=== PATIENT | female | born 1990 | race Caucasian/White ===

== ENCOUNTER 2018-12-06 15:25 | Inpatient (IN) | payer OTHER ==
[2018-12-06] MEDS ORDERED: Ringers Lactate 1,000 ML IV PRN (16:15)
[2018-12-06] MEDS ORDERED: MEPERIDINE HCL 25 MG/0.5 ML IV PRN (16:15)
[2018-12-06] MEDS ORDERED: ZOLPIDEM TARTRATE 5 MG TABLET PO PRN (16:15)
[2018-12-06] MEDS ORDERED: CARBOPROST TROME 250 MCG/ML IM PRN (16:15)
[2018-12-06] MEDS ORDERED: BUTORPHANOL 1 MG/ML INJ IV PRN (16:15)
[2018-12-06] MEDS ORDERED: MIDAZOLAM HCL 2 MG/2 ML INJ IV PRN (16:15)
[2018-12-06] MEDS ORDERED: PROMETHAZINE 25 MG/ML VIAL IM PRN (16:15)
[2018-12-06] MEDS ORDERED: MAGNES/ALUMIN/SIMET 30ML UCUP PO PRN (16:15)
[2018-12-06] MEDS ORDERED: METHYLERGONOVINE 0.2MG/ML AMP IM PRN (16:15)
[2018-12-06] MEDS ORDERED: DIPHENHYDRAMINE 25 MG TAB/CAP PO PRN (16:15)
[2018-12-06] MEDS ORDERED: miSOPROStol 100 MCG TAB VAG PRN ×2 (16:26→18:17)
[2018-12-06 16:49] LABS: RPR Titer ND
[2018-12-06 16:51] LABS: Absolute Lymphocytes (CBC) 2.7 K/uL (0.7-4.9); Absolute Monocytes 0.6 K/uL (0.1-1.3); Absolute Neutrophil 6.3 K/uL (1.8-8.0); Basophils % 0.3 % (0-1.3); Eosinophils % 0.4 % (0-4.4); Hematocrit 36.5 % (36.0-45.0); Lymphocytes % 27.7 % (15.3-44.8); MPV 10.8 fL (7.6-11.3); Monocytes % 6.1 % (3.3-12.3); RBC Red Blood Cell Count 4.18 M/uL (3.86-4.86)
[2018-12-06 16:59] LABS: Urine Appearance CLEAR; Urine Bilirubin NEGATIVE (NEG); Urine Blood NEGATIVE (NEG); Urine Color YELLOW; Urine Glucose NEGATIVE (NEG); Urine Protein NEGATIVE (NEG); Urine Specific Gravity >=1.030 (1.005-1.030); Urine pH 6.5 (5.0-7.0)
[2018-12-06] MEDS ORDERED: Ringers Lactate 1,000 ML IV SCH (17:00)
[2018-12-06 17:01] LABS: Urine Microscopic Reflex NO UMIC
[2018-12-06 18:27] VITALS: BMI 29.8
--- NOTE | 2018-12-06 19:27 | PREOPHP ---
Date of Admission: 12/06/2018 Briana Abdullahi, a 28-year-old primigravida, 38 weeks , gestational diabetic for inductio n. A 1.5 cm, 50% effaced vertex, but still -1, almost -2 station. Cytotec 50 mcg inserted. Full pr e-insertion talk given. FHTs normal. She is misbah mildly but not even aware of it. We will i nsert 2 more 50 mcg Cytotec in 6 hour interval then attempt membrane rupture tomorrow. Anticipate de livery sometime tomorrow. Full admission talk given. HILTON/MODL Voice ID: [id number]
[2018-12-06 21:58] LABS: RPR (Rapid Plasma Reagin) NON-REACT (NON-REACT)
[2018-12-07] MEDS ORDERED: FENTANYL CITR 100 MCG/2 ML IV ONE (06:42)
[2018-12-07] MEDS ORDERED: ROPIVACAINE HCL 100 ML IV PRN (06:43)
[2018-12-07] MEDS ORDERED: ROPIVACAINE HCL 0.2% 20ML AMP SQ ONE (06:44)
--- NOTE | 2018-12-07 07:04 | PN ---
The patient responded quite well to mcg Cytotec tablet, went into a good active labor jimmy ethan. Rupture of membranes, early this morning. There was report of light meconium with the fluid th at I see right now looked fairly normal. No thick meconium for sure. She is now 3 cm, 70 to 80% eff aced. She has had 1 dose of Stadol 1 mg IV, Phenergan 25 mg IM. I have placed a scalp electrode to get a more accurate reading on the baby. If the baby looks good and we continue in her labor, then w e will consider giving her an epidural at this point since I think more Stadol would decrease the bab y's variability and we do not want any confusion. discussion with patient and family. HILTON/EMILIE Voice ID: [id number] Report ID: [id number]
[2018-12-07] MEDS ORDERED: OXYTOCIN/LR 20 UNIT/1,000 ML BAG IV ONE (07:22)
[2018-12-07] MEDS ORDERED: EPHEDRINE SULF 50 MG/ML VIAL ONE ×2 (08:26→08:56)
--- NOTE | 2018-12-07 08:28 | PN ---
Baby responded to acoustic stimulation, but looks more like variable than anything else. At this poi nt, I think that because of the patient's request at epidural that would be better than giving her mo re Stadol which could confuse the issue with FHT's. We will start the hydration process and call Ane sthesia. HILTON/EMILIE Voice ID: [id number] Report ID: [id number]
[2018-12-07] MEDS ORDERED: METOCLOPRAMIDE 10 MG/2mL INJ ONE (08:32)
[2018-12-07] MEDS ORDERED: NA CIT/CITRIC AC 30 ML ORAL UDC ONE (08:33)
[2018-12-07] MEDS ORDERED: METHYLERGONOVINE 0.2MG/ML AMP IM ONE (08:33)
[2018-12-07] MEDS ORDERED: CEFAZOLIN/SWI 2gm 2 GM/20 ML SYR ONE (08:33)
[2018-12-07] MEDS ORDERED: FAMOTIDINE 20 MG/2 ML VIAL IV ONE (08:33)
[2018-12-07] MEDS ORDERED: CARBOPROST TROME 250 MCG/ML IM ONE (08:33)
[2018-12-07] MEDS ORDERED: LIDOCAINE 2% MPF 5 ML VIAL ONE (08:35)
[2018-12-07] MEDS ORDERED: NS 0.9% VIAL 10 ML ONE ×2 (08:56→08:57)
[2018-12-07] MEDS ORDERED: MORPHINE SULFATE/PF 1 MG/ML (10 ML AMP) ONE (08:56)
[2018-12-07] MEDS ORDERED: OXYTOCIN 10 UNIT/ML ML IV ONE (08:56)
[2018-12-07] MEDS ORDERED: ONDANSETRON 4 MG/2 ML VIAL ONE (09:05)
[2018-12-07] MEDS ORDERED: LIDOCAINE 1% MPF 5 ML VIAL ONE (09:06)
[2018-12-07] MEDS ORDERED: LIDOCAINE 2% W/EPI 1:200,000 MPF 20 ML VIAL IM ONE (09:07)
[2018-12-07] MEDS ORDERED: Phenylephrine HCl 10 MG/ML 1 ML VIAL ONE (09:43)
[2018-12-07] MEDS ORDERED: KETOROLAC 30 MG/ML INJ IV PRN (09:48)
[2018-12-07] MEDS ORDERED: ACETAMINOPHEN 500 MG TAB PO PRN ×2 (09:48)
[2018-12-07] MEDS ORDERED: BISACODYL 10 MG RECTAL SUPP RECT PRN (09:48)
[2018-12-07] MEDS ORDERED: DIPHENHYDRAMINE 25 MG TAB/CAP PO PRN (09:48)
[2018-12-07] MEDS ORDERED: Oxycodone HCl/Acetaminophen 1 TAB TAB PO PRN (09:48)
[2018-12-07] MEDS ORDERED: ONDANSETRON 4 MG (ODT) TAB PO PRN (09:48)
[2018-12-07] MEDS ORDERED: CEFAZOLIN/SWI 1gm 1 GM/10 ML SYR IV SCH (09:48)
[2018-12-07] MEDS ORDERED: ONDANSETRON 4 MG/2 ML VIAL IV PRN (09:48)
[2018-12-07] MEDS ORDERED: KETOROLAC 30 MG/ML INJ IM PRN (09:48)
[2018-12-07] MEDS ORDERED: OXYTOCIN/LR 20 UNIT/1,000 ML BAG IV SCH (10:00)
[2018-12-07] MEDS ORDERED: D5LR 1,000 ML with OXYTOCIN 20 UNIT IV SCH ×2 (10:00)
--- NOTE | 2018-12-07 13:16 | PN ---
Subjective: After epidural was instituted patient had pronounced decelerations 60 beats per minute f or 2 minutes. Blood pressure also was down low. Dr. Rhoades has given her ephedrine, blood pressure is responded. Baby looks better but because she is only 2.5 to 3 cm, we have decided to proceed with a . The baby did not have good cspy-mf-pgjr variability actually from the beginning. The matthew t-to-beat actually looks pretty good right now, but we were going to proceed with as patient and I all agree. Infection, blood loss, anesthetic complications, injury to bladder, bowel, ureter, postoperative complications, clots in legs, and pneumonia discussed. The patient knows full y well this does not constitute all the possible problems that could occur during the following surge ry. Student Services Coordinator surgeon has been notified. We have an emergency, cleaned up in the OR since we just f inished . But at this point baby looks stable. No change in the physical status, heart and lungs are clear. We will proceed with expeditious , 2 g of Ancef ordered for prophylaxis, roxanne todd preoperative counseling. HILTON/EMILIE Voice ID: [id number] Report ID: [id number]
[2018-12-07] MEDS ORDERED: Ringers Lactate 1,000 ML IV ONE (13:21)
--- NOTE | 2018-12-07 13:22 | PN ---
Subjective: Since ephedrine, the baby's heart rate looks better, still not a lot of anlw-rb-myqt sita iability, but no decelerations anymore. The patient has been counselled. I think proceeding with benny cochran is still probably reasonable idea. I think if it has to go along during the day, she will brielle ntually deliver vaginally, but could not sure the couple that the baby is in excellent condition. Ho wever, as I said there are no major decelerations at this time. Again options given including expect ant management. She will let us know as soon as possible since the surgical area is almost prepared and ready. HILTON/EMILIE Voice ID: [id number] Report ID: [id number]
--- NOTE | 2018-12-07 15:55 | OP ---
Surgeon: Fahad Suero MD Anesthesiologist: Dr. Díaz. Indications: A 28-year-old, gestational diabetic, 38 weeks. Had Cytotec inserted. Progressed to ap proximately 3 cm, experienced spontaneous rupture of membranes, very light meconium. FHTs did not sh ow good variability at any point, decreased slightly after Stadol, but were reassuring enough to cont inue with the labor. The patient had a deceleration of 60 beats per minute for 2 minutes probably re lated to the epidural after appropriate measures by Dr. Díaz of giving IV ephedrine, heart rate retur jany to the baseline level. However, we decided to proceed with section for nonreassuring as the patient was still early in labor. Infection, blood loss, anesthetic complications; injury to bl adder, bowel, ureter; postoperative complications, clots in legs, pneumonia, future C-sections, all d iscussed. The patient was given the option of waiting, but chose to proceed with . was called. Hop Weigher Surgeon: Dr. Carnes. Anesthesia: With epidural. Procedure In Detail: After prepping and draping, time-out was performed. Then Pfannenstiel incision was created. The incision was carried to the fascia. The fascia was incised and incision carried t ransversely bilaterally. Anterior fascial plane was developed with both blunt and sharp dissection. Posterior plane was also developed. Anterior rectus muscle was . Peritoneal defect was en tered bluntly. Low transverse uterine incision created. A 5-pound, 14-ounce male was delivered with out difficulties. Apgars 9 and 9. Cord blood specimen was obtained. Placenta was removed manually. Uterus cleared of clot and blood and exteriorized. Cervical os was dilated with ring clamp. Uteru s closed with a running locked stitch of 1 chromic followed by an imbricating stitch of 1 chromic. E stimated blood loss 900 cc. Gutters clear of clot and blood. Uterus was replaced in the peritoneal cavity. Inspection of suture line showed no further bleeding. Muscles were replaced with 0 Dexon 3 interrupted sutures. One Vicryl used to close the fascia running from either angle to the midline. Subcutaneous tissue closed with 2-0 plain. Absorbable hardy placed and then metal hardy. The pa tient had been given 2 g of Ancef. Tolerated all procedures well. Transferred back to the room in ood condition. Final Diagnoses: Intrauterine gestation, 38 weeks 1 day. Cytotec for labor induction. Non-reassuri ng heart tones. Primary section. Epidural anesthesia. MARIUSZC/MODL Voice ID: [id number] Report ID: [id number]
[2018-12-08] MEDS ORDERED: MAGNESIUM HYDROXIDE 8% 30 ML PO PRN (09:48)
[2018-12-08] MEDS: Oxycodone HCl/Acetaminophen 1 TAB TAB PO PRN ×3 (10:38→22:14)
[2018-12-09] MEDS: Oxycodone HCl/Acetaminophen 1 TAB TAB PO PRN (03:46)
[2018-12-09] MEDS ORDERED: Tdap (Diph,Pertuss(Acell),Tet Vac) 0.5 ML SYR IMVAC ONE (09:00)
--- NOTE | 2018-12-09 09:06 | DS ---
Hospital Course: A 28-year-old primigravida, 38 weeks 1 day, gestational diabetes, underwent primary section low transverse cervical with epidural anesthesia for nonreassuring heart tone s. Delivered a 5-pound 14-ounce male , Apgars 9 and 9. Light meconium noted. No suspicion of aspiration. 900 cc blood loss at the time of surgery. Ancef pre and postop for prophylaxis. The p atient is afebrile, ambulating, voiding. Lochia is normal. She will be dismissed later this morning to report back to my office late next week for staple removal. To report any temperature elevation of 100 degrees or greater, severe pain, heavy bleeding, or any other type of abnormality. She has be en instructed several times that probably she gets Tdap immunization, this is again offered today. D ismissed with tramadol for analgesia. She was given the option of taking Motrin instead, but chose t ramadol. Final Diagnoses: Intrauterine gestation 38 weeks 1 day, Cytotec for labor induction, nonreassuring f etal heart tones, primary section, epidural anesthesia. Tdap offered. HILTON/EMILIE Voice ID: [id number] Report ID: [id number]
[2018-12-09 12:46] VITALS: BP 142/79; TEMP 98
--- NOTE | 2018-12-10 08:31 | PN ---
Postoperatively, patient has done quite well. Vital signs are normal. Output is good. H and H with minimal change. Lochia is normal. We will discontinue Virk and IV, probably dismiss patient tomor row. Full dismissal instructions given, but we will go over those again tomorrow. She has not had h er Tdap shot, again this is offered. We have discussed this numerous times during the . HILTON/EMILEI Voice ID: [id number] Report ID: [id number]
[2018-12-12 04:01] LABS: HBsAG Nonreactive (Nonreactive)
== END 2018-12-09 12:25 | disposition home or self-care (01) | DRG 788 ==
LOC: 2ND-WC 16:01
PROVIDERS: ADMIT Specialist; ATTEND Specialist
PROC: 3E0P7VZ Introduction of Hormone into Female Reproductive, Via Natural or Artificial Opening (ICD-10-PCS; 2018-12-06)
PROC: 10D00Z1 Extraction of Products of Conception, Low, Open Approach (ICD-10-PCS; principal; 2018-12-07 09:11)
DX: O75.0 Maternal distress during labor and delivery (principal); O24.429 Gestational diabetes mellitus in childbirth, unspecified control; Z3A.38 38 weeks gestation of pregnancy; Z37.0 Single live birth; Z23 Encounter for immunization
CPT/HCPCS: 36415; 81003; 82962; 85014; 85025; 86592; 86901; 87340; 88307; 90715; J0595; J0690; J2210; J2370; J2405; J2550; J2590; J2765; J2795; J3010

== ENCOUNTER 2022-02-03 03:45 | Inpatient (IN) | payer OTHER ==
--- NOTE | 2022-02-01 20:03 | PREOPHP ---
Date of Admission: 02/03/2022 History Of Present Illness: This is a 31-year-old, 2, para 1, with previous for re peat . She is gestational diabetic, therefore we are doing her at 38 weeks 6 days . She has been seen by a high-risk doctor who agrees with this approach. She has been seen by an en docrinologist also during the . Full discussion about infection; blood loss; anesthetic com plications; injury to bladder, bowel, ureter; postoperative complications; clots in legs; pneumonia. The patient knows fully well this does not constitute all of the possible problems that could occur during or following surgery. Family History: Maternal grandfather with hypertension. Maternal grandfather also with stroke and h eart attack. Maternal grandfather also with diabetes. Maternal grandmother with colon cancer. Past Medical History: The patient has had previous . No serious medical illnesses. Allergies: NO DRUG ALLERGIES. Medications: No medicines prior to admission and on vitamins and iron and glyburide for mary beth betes. Social History: Does not smoke. Physical Examination: HEENT: Clear. Pupils equal, round, reactive to light and accommodation. Conjunctivae well perfused . No oral, lingual, or buccal lesions. Chest: Lungs clear. Heart: Without murmurs, thrills, heaves, or rubs. Breasts: Without masses on previous visits. Abdomen: Term size. Baby is vertex, but still high. Extremities: Clear without edema, cyanosis, or clubbing. Assessment And Plan: She is set for section on of this week. Full discussion. Francy strickland knows that Dr. Jaramillo will be seeing her in the postoperative period as I am going out of town for the weekend. HILTON/EMILIE Voice ID: [id number]
[2022-02-02 15:52] LABS: Absolute Lymphocytes (CBC) 3.5 K/uL (0.7-4.9); Hematocrit 35.7 % (36.0-45.0); MPV 9.3 fL (7.6-11.3); RBC Red Blood Cell Count 4.07 M/uL (3.86-4.86)
[2022-02-02 15:58] LABS: Protime INR 0.88
[2022-02-02 16:07] LABS: Urine Appearance Clear (Clear); Urine Bilirubin Negative (Negative); Urine Blood Negative (Negative); Urine Color Yellow (Yellow); Urine Glucose Negative (Negative); Urine Protein Negative (Negative); Urine Specific Gravity 1.015 (1.005-1.030); Urine Urobilinogen 0.2 mg/dL (0.2-1.0)
[2022-02-02 16:09] LABS: Urine Microscopic Reflex NO UMIC
--- OUTSIDE RECORDS SUMMARY | 2022-02-03 03:47 | XMS REPORT | Continuity of Care Document ---
:1990 Author Organization [facility] t Address [address] [place] [address] [address] [place] [address] Care Team Providers Name Role Phone Rainer MEDINA Primary Care Physician Unavailable MANOJ Attending Clinician Unavailable Manoj MATA Attending Clinician Payers Payer Name Policy Type Policy Number Effective Date Expiration Date S ource PHCS GENERIC [id number] 2018 00:00:00 Problems Condition Condition Condition Status Onset Resolution Last Treating Co mments Source Name Details Category Date Date Treatment Clinician Date Controlled Controlled Disease Active 2020-09 U nivers type 2 type 2 - ity of diabetes diabetes 00:00: [place] mellitus mellitus 00 Medica l without without Branch complicati complicati on, on, without without long-term long-term current current use of use of insulin insulin Allergies, Adverse Reactions, Alerts Allergy Allergy Status Severity Reaction(s) Onset Inactive Treating Comm ents Source Name Type Date Date Clinician NO KNOWN Drug Active Univers ALLERGIE Class ity of S [place] [facility] [place] Social History Social Habit Start Date Stop Date Quantity Comments Source History SDOH University o f Alcohol Std [place] [facility] Drinks Branch History SDOH University o f Alcohol Binge [place] [facility] History SDOH University o f Alcohol Comment [place] [facility] ASSERTION [facility] Exposure to 2021-11-28 2021-12-[address] [facility] SARS-CoV-2 00:00:00 15:01:00 [facility] (event) Branch Alcohol intake 2021-12-28 2021-12-28 Lifetime University of 00:00:00 00:00:00 non-drinker [place] [facility] (finding) [place] Tobacco use and 2021-09-08 2021-09-08 Never used Universit y of exposure 00:00:00 00:00:00 [facility] History SDOH 2021-09-08 2021-09-08 1 University o f Alcohol Frequency 00:00:00 00:00:00 [facility] [place] Sex Assigned At [birth year] Universit y of 00:00:00 00:00:00 [facility] Smoking Status Start Date Stop Date Source Never smoker University [facility] Medical [place] Medications Ordered Filled Start Stop Current Ordering Indication Dosage Frequency Signature Comments Components Source Medication Medication Date Date Medication? Clinician (SIG) Name Name glyBURIDE Yes [id number] 2.5mg Take 1 U nivers 2.5 mg 4-12 tablet by ity of tablet 00:00: mouth with [place] 00 evening Medical meal. Branch ONETOUCH 2020-09 Yes [id number] Use as Uni vers VERIO TEST 2-22 directed ity o f STRIPS 00:00: for up to [place] strip 00 5 times a Medical day thru Branch your ONETOUCH 2020-09 Yes [id number] Use as Uni vers DELICA 2-22 directed ity of LANCETS 30 00:00: [place] to [place] gauge Misc 00 5 times a Medi twyla day thru Branch your glyBURIDE 2020-09 No [id number] 2.5mg Take 1 Univers 2.5 mg 2-22 04-12 tablet by ity of tablet 00:00: 00:00 [place]00 [place] Medical meal. Branch Vital Signs Vital Name Observation Time Observation Value Comments Source Systolic blood 2021-12-28 20:46:00 113 mm[Hg] Univer sity [facility] pressure [facility] Diastolic blood 2021-12-28 20:46:00 73 mm[Hg] Unive rsity [facility] Heart rate 2021-12-28 20:46:00 89 /min [facility] Body height 2021-12-28 20:46:00 157.5 cm [facility] Body weight 2021-12-28 20:46:00 73.936 kg [facility] BMI 2021-12-28 20:46:00 29.81 kg/m2 [facility] Oxygen saturation 2021-12-28 20:46:00 98 /min Uni [facility] in Arterial blood Medical Br anch by Pulse oximetry Procedures Procedure Date / Time Performed Performing Clinician Annemarie strickland POCT HEMOGLOBIN A1C 2021-12-28 20:51:00 Anitha Aranda [facility] Encounters Start End Encounter Admission Attending Care Care Encounter Source Date/Time Date/Time Type Type Clinicians Facility Department ID 2021-12-28 2021-12-28 Outpatient R MANOJ [facility] [id number] Univers 15:30:00 16:33:26 [facility] 2021-12-28 2021-12-28 Office Manoj [facility] [id number] Univers 15:30:00 16:33:26 Visit [facility] [employer] [id number] it y of [place] [id number] Bert as HUBER?BLEA [id number] [address] MEDICAL OFFICE BUILDING Results Test Description Test Time Test Comments Results Result Comments Source POCT HEMOGLOBIN A1C TEST 2021-12-28 20:51:00 Test Item Value Reference Range Interpretation Comme nts POCT HBA1C (test code = 4548-4) 5.2 % 4-6 [facility]
[2022-02-03] MEDS ORDERED: Ringers Lactate 1,000 ML IV PRN (04:27)
[2022-02-03] MEDS ORDERED: NA CIT/CITRIC AC 30 ML ORAL UDC PO ONE (04:30)
[2022-02-03] MEDS ORDERED: CARBOPROST TROME 250 MCG/ML IM ONE (04:32)
[2022-02-03] MEDS ORDERED: METHYLERGONOVINE 0.2MG/ML AMP IM ONE (04:32)
[2022-02-03 04:55] VITALS: O2SAT 99
[2022-02-03] MEDS ORDERED: Ringers Lactate 1,000 ML IV SCH (05:00)
[2022-02-03] MEDS ORDERED: METOCLOPRAMIDE 10 MG/2mL INJ IV SCH (05:00)
[2022-02-03] MEDS ORDERED: CEFAZOLIN 2 GM in NA CHLORIDE 0.9% 50 ML IVPB SCH (05:00)
[2022-02-03] MEDS ORDERED: D5LR 1,000 ML with OXYTOCIN 20 UNIT IV SCH ×6 (05:00→15:30)
[2022-02-03] MEDS ORDERED: OXYTOCIN/LR 20 UNIT/1,000 ML BAG IV SCH ×3 (05:00→10:00)
[2022-02-03 05:07] VITALS: BMI 29.9
[2022-02-03] MEDS ORDERED: MORPHINE SULFATE/PF 1 MG/ML (10 ML AMP) ONE (06:55)
[2022-02-03] MEDS ORDERED: EPHEDRINE SULF 50 MG/ML VIAL ONE (06:56)
[2022-02-03] MEDS ORDERED: OXYTOCIN 10 UNIT/ML ML ONE ×3 (06:56→07:45)
[2022-02-03] MEDS ORDERED: LIDOCAINE 1% MPF 5 ML VIAL ONE (06:56)
[2022-02-03] MEDS ORDERED: NS 0.9% VIAL 10 ML ONE (06:56)
[2022-02-03] MEDS ORDERED: BUPIVACAINE 0.75% (PF) 2 ML SP ONE (06:56)
[2022-02-03] MEDS ORDERED: FAMOTIDINE 20 MG/2 ML VIAL IV SCH (09:00)
[2022-02-03] MEDS ORDERED: CEFAZOLIN 2 GM in NA CHLORIDE 0.9% 100 ML IVPB ONE ×2 (09:00→16:00)
[2022-02-03] MEDS ORDERED: CEFAZOLIN 2 GM in NA CHLORIDE 0.9% 100 ML IVPB SCH (09:00)
[2022-02-03] MEDS ORDERED: ACETAMINOPHEN 500 MG TAB PO PRN ×2 (09:04)
[2022-02-03] MEDS ORDERED: Oxycodone HCl/Acetaminophen 1 TAB TAB PO PRN (09:04)
[2022-02-03] MEDS ORDERED: KETOROLAC 30 MG/ML INJ IV PRN (09:04)
[2022-02-03] MEDS ORDERED: ONDANSETRON 4 MG (ODT) TAB PO PRN (09:04)
[2022-02-03] MEDS ORDERED: BISACODYL 10 MG RECTAL SUPP PR PRN (09:04)
[2022-02-03] MEDS ORDERED: ONDANSETRON 4 MG/2 ML VIAL IV PRN (09:04)
[2022-02-03] MEDS ORDERED: DIPHENHYDRAMINE 25 MG TAB/CAP PO PRN (09:04)
[2022-02-03] MEDS ORDERED: KETOROLAC 30 MG/ML INJ IM PRN (09:04)
[2022-02-03] MEDS ORDERED: hydrOXYzine HCL 25 MG TAB PO PRN (09:09)
[2022-02-03] MEDS ORDERED: PROMETHAZINE INJ 25 MG/ML AMP IV PRN (09:44)
[2022-02-03] MEDS: IBUPROFEN 600 MG TAB PO PRN (22:55)
[2022-02-04] MEDS ORDERED: MAGNESIUM HYDROXIDE 8% 30 ML PO PRN (09:04)
[2022-02-04] MEDS ORDERED: KETOROLAC 30 MG/ML INJ IV ONE (09:11)
[2022-02-04] MEDS: IBUPROFEN 600 MG TAB PO PRN ×2 (15:15→21:07)
[2022-02-04] MEDS: Oxycodone HCl/Acetaminophen 1 TAB TAB PO PRN ×2 (16:29→22:50)
[2022-02-05] MEDS ORDERED: TDAP (DIPHTH,PERTUSS(ACELL),TET VAC) 0.5 ML VIAL IMVAC ONE ×2 (12:15→12:37)
[2022-02-05 14:09] VITALS: BP 118/71; TEMP 97.8
--- NOTE | 2022-02-06 06:38 | DS ---
Date of Discharge: 02/05/2022 Discharge Diagnoses: 1.Intrauterine at 38 weeks and 6 days of gestation. 2.She has a history of medication-controlled diabetes. 3.Prior . 4.Single live . History Of Present Illness: Briana Abdullahi is a 31-year-old white female G2, P1, at 38 weeks 6 days of gestation. Had early care with Dr. Suero, is admitted in the hospital for repeat . The patient's brief history shows negative group B strep, negative COVID, and Rh positive in blood. She has early care and she has been taking glyburide or medication for her diabetes. Her care was done in the OR unremarkable and she was doing quite well and her was normal. She was admitted at term for repeat on February 03. Her was uneventful and unre markable. On her postop day #1, she required pain control, IV hydration, and her diet was slowly ret urned back to normal. On postop day #2, it shows that her H and H from the prior day was normal and her diet has returned back to normal. She tolerated a regular diet and passing bowel movements. Ove rall condition was normal. Therefore, discharge planning was made. Examination was conducted at bed side and was benign. Instruction given to the patient. Discharge Medications: 1.Tylenol No. 3, #20, 1-2 tabs p.o. q. 4-6 hours p.r.n. for pain, no refills. 2.Ibuprofen 800 mg #20 1 tab p.o. t.i.d. with food p.r.n. for pain, no refills. Disposition: Home. Condition: Stable. Followup: Contact Dr. Suero's office for surgical staple removal from her skin and care f ollow up. The patient was also instructed to resume her prior home medication as previously directed and self diabetes monitoring. BW/MODL Voice ID: [id number] Report ID: [id number]
--- NOTE | 2022-02-07 12:19 | OP ---
Surgeon: Fahad Suero MD [employer] I Laborer: Sukumar Cat MD Anesthesiologist: Katelynn Velazquez and Dr. Díaz. Indications: A 31-year-old 2, para 1, at 38 weeks 6 days, followed antepartum, noted to be d iabetic, but in good control, for repeat section. Infection; blood loss; anesthetic complic ations; injury to bladder, bowel, ureter; postoperative complications; clots in legs; and pneumonia d iscussed. The patient knows fully well, this does not constitute all the possible problems that coul d occur during or following surgery. Anesthesia: Spinal block anesthesia. Description Of Procedure: After spinal block, the patient was prepped and draped in usual sterile ma nner and placed in dorsal supine position. After time-out was performed, Pfannenstiel incision was c reated. Incision was carried to the fascia. The fascia was incised and incision carried transversel y bilaterally. Anterior fascial plane was developed with both blunt and sharp dissection. Posterior fascial plane was developed. The peritoneal defect was seen and entered. Low transverse uterine in cision was created. A 6-pound 13-ounce male was delivered without difficulties, Apgars 9 and 9 or 10 at one minute. Cord blood specimen obtained. Placenta removed manually. Uterus cleared of clot and blood and exteriorized. Cervical os dilated with ring clamps. Uterus closed with a running locked stitch of 1 chromic, followed by a faint single [id number]-[id number] stitch in the left angle for complete hemostasis. Estimated blood loss, 550 cc or less. Gutters clear of clot and blood. Uterus replaced in the peritoneal cavity. Inspection of the gutters and suture line showed no further blee ding. The rectus muscles were reapproximated using 2 sutures of 0 Vicryl, interrupted. The fascia w as closed using 0 Vicryl using 1 Vicryl running from either angle to the midline. Subcutaneous tissu e was closed with 2-0 plain hardy used for the skin. Patient again had been given 2 g of Ancef raysa or to the procedure. Tolerated all procedures well. Transferred back to her room in good condition. Final Diagnoses: Intrauterine gestation 38 weeks 6 days, diabetic, repeat section, spinal b lock anesthesia. HILTON/EMILIE Voice ID: [id number] Report ID: [id number]
== END 2022-02-05 13:15 | disposition home or self-care (01) | DRG 788 ==
LOC: 2ND-WC 03:45
PROVIDERS: ADMIT Specialist; ATTEND Specialist
PROC: 10907ZC Drainage of Amniotic Fluid, Therapeutic from Products of Conception, Via Natural or Artificial Opening (ICD-10-PCS; 2022-02-03)
PROC: 10D00Z1 Extraction of Products of Conception, Low, Open Approach (ICD-10-PCS; principal; 2022-02-03 07:30)
DX: O34.211 Maternal care for low transverse scar from previous cesarean delivery (principal); O24.425 Gestational diabetes mellitus in childbirth, controlled by oral hypoglycemic drugs; Z3A.38 38 weeks gestation of pregnancy; Z37.0 Single live birth; Z20.822 Contact with and (suspected) exposure to COVID-19
CPT/HCPCS: 36415; 81003; 82947; 85014; 85018; 85025; 85610; 85730; 86850; 86900; 86901; 88307; J0690; J2210; J2405; J2550; J2590; J2765; J3490; J7120; J7121; U0003